=== PATIENT | male | born 1945 | race Caucasian/White ===

== ENCOUNTER → 2020-11-27 | Outpatient (CLI) | payer MEDICARE ==
[~2020-11-27] MED LIST: ACTOS30 MG PO; ASPIRIN E.C. 8181 MG PO; BETAXOLOL HCL 55 ML OP; COZAAR100 MG PO; CRESTOR 10MG10 MG PO; FISH OIL500 MG PO; GLUCOSAMINE S1000 MG PO; GLUCOVANCE 2.51 TAB PO; LUMIGAN EYE GTTS OU; M2 CHROMIUM500 MCG PO; MULTIPLE VITAMI1 CAP PO; VITAMIN D1000 IU PO
== END ==
LOC: COL.RAD 08:02
DX: Z13.6 Encounter for screening for cardiovascular disorders (principal)

== ENCOUNTER 2023-09-27 15:38 | Outpatient (RCR) | payer MEDICARE, OTHER | END 2023-09-28 | disposition home or self-care (01) | LOC: COL.CR | DX: Z48.812 Encounter for surgical aftercare following surgery on the circulatory system (principal); Z95.1 Presence of aortocoronary bypass graft; I25.2 Old myocardial infarction ==

== ENCOUNTER 2023-10-27 14:54 | Outpatient (RCR) | payer MEDICARE, OTHER | END 2023-10-29 | disposition home or self-care (01) | LOC: COL.CR | DX: Z48.812 Encounter for surgical aftercare following surgery on the circulatory system (principal); Z95.1 Presence of aortocoronary bypass graft; I25.2 Old myocardial infarction ==

== ENCOUNTER 2023-11-17 16:47 | Outpatient (RCR) | payer MEDICARE, OTHER | END 2023-11-17 16:50 | disposition home or self-care (01) | LOC: COL.CR 16:47 | DX: Z48.812 Encounter for surgical aftercare following surgery on the circulatory system (principal); Z95.1 Presence of aortocoronary bypass graft; I25.2 Old myocardial infarction ==